=== PATIENT | female | born 1970 | race Caucasian/White ===

== ENCOUNTER 2016-11-29 06:58 | Day surgery (SDC) | payer BC ==
--- NOTE | 2016-10-07 20:48 | HP ---
PREOPERATIVE HISTORY AND PHYSICAL: DATE OF ADMISSION: 10/18/16 PROVIDER: Jignesh Jamison MD CHIEF COMPLAINT: Left ankle pain. HISTORY OF PRESENT ILLNESS: Ester is a 45-year-old female followed by Dr. Jamison for ongoing left Achilles tendinosis. This has been bothering her for several years and has been treated conservatively with immobilization and a cast , Cam walking boot, and has also been treated with a dorsiflexion walking AFO. She states that the pain has improved very slightly and continues to cause disruption in her day-to-day activities. She denies any history of injury. She is interested in surgical intervention for correction of the problem at this point. PAST MEDICAL HISTORY: 1. Atrial flutter. 2. Asthma. PAST SURGICAL HISTORY: 1. Pilonidal cyst excision. 2. section. 3. Colectomy. MEDICATIONS: 1. Nadolol 20 mg one-half tab p.o. every day. 2. Aleve 220 mg 2 tabs p.o. b.i.d. p.r.n. 3. Tylenol 325 mg p.o. q.i.d. p.r.n. 4. Albuterol inhaled q.4 hours p.r.n. ALLERGIES: SULFA and TOBRAMYCIN. FAMILY HISTORY: Significant for heart disease, diabetes, hypertension, stroke, cancer, and rheumatoid arthritis. SOCIAL HISTORY: The patient lives with her . She has never smoked. She occasionally consumes alcohol. She does not exercise regularly. 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 REVIEW OF SYSTEMS: Constitutional: Negative for recent hospitalizations, fever , chills, night sweats, or weight loss. Head: Negative for headaches, lightheadedness, or balance problems. Cardiovascular: Negative for chest or arm pain with exertion. Positive for heart murmur. Negative for heart palpitations, high blood pressure, embolism, or deep vein thrombosis. Respiratory: Negative for chronic cough or shortness of breath with exertion. Positive for asthma. Negative for COPD. Gastrointestinal: Negative for heartburn, nausea, vomiting, diarrhea, constipation, or GERD. Genitourinary: Negative for nighttime urination, frequency of urination, urinary tract infections, or kidney problems. Musculoskeletal: Negative for chronic back pain or recent fractures. Skin: Negative for rashes, lesions, lumps, or sores. Neurologic: Negative for seizure, stroke, epilepsy, depression, or anxiety. Endocrine: Negative for diabetes or thyroid problems. Hematology: Negative for easy bleeding, bruising, or anemia. PHYSICAL EXAMINATION GENERAL: She is a well-developed, well-nourished obese female, in no acute distress at rest. She is alert and oriented x3 with appropriate mood and affect. VITAL SIGNS: The patient is 5 feet and 5 inches, 315 pounds, blood pressure 128 /65, and pulse is 74. HEENT: Normocephalic, atraumatic. Hearing and vision are grossly intact. NECK: Her trachea is midline. RESPIRATORY: Lungs clear to auscultation bilaterally. No wheezes, rales, or rhonchi. CARDIOVASCULAR: Regular rate and rhythm. No murmurs, rubs, or gallops. Normal S1, S2. ABDOMEN: Soft, obese, and nontender. EXTREMITIES: Exam of the left lower extremity, skin is intact without abrasions or open wounds. There is no edema, ecchymosis, or gross deformities. She has tenderness to palpation along the length of the Achilles tendon, most notably at its insertion. She has full hindfoot range of motion with 5/5 strength throughout. Resisted plantar flexion increases her pain. Sensation to light touch is intact. She has a 2+ dorsalis pedis pulse. IMAGING: MRI of the left ankle was consistent with chronic Achilles tendinosis with partial tearing. IMPRESSION: Left Achilles tendinosis. PLAN: The patient is to undergo left ankle Achilles advancement with calcaneal ostectomy by Dr. Jamison on 10/18/16. The risks, benefits, and postoperative course were discussed with the patient at length and she would like to proceed. All of her questions were answered to her full satisfaction. We will follow up with the patient in the postoperative phase. MICHELLE GRANT [id number]/[facility] #: [id number] CIERA
--- NOTE | 2016-11-26 12:38 | HP ---
PREOPERATIVE HISTORY AND PHYSICAL: DATE OF ADMISSION: 11/29/16 [facility] PROVIDER: Jignesh Jamison MD CHIEF COMPLAINT: Left ankle pain. HISTORY OF PRESENT ILLNESS: Ester is a 46-year-old female who has been followed by Dr. Jamison for ongoing pain in her left Achilles tendon that she has had pain for greater than 3 years. She has tried conservative treatment with a dorsiflexion blocking AFO. She has tried physical therapy. She has tried rest with a tall CAM walking boot. She has tried [id number] antiinflammatories and has been very frustrated with the lack of progress with any of those treatments. She is now interested in surgical intervention for correction of the problem. PAST MEDICAL HISTORY: Type 2 diabetes, asthma, atrial flutter. PAST SURGICAL HISTORY: Pilonidal cyst excision, section, and colectomy. She reports no complications with the anesthesia with any of those procedures. MEDICATIONS: 1. Nadolol 20 mg one-half tab p.o. daily. 2. Aleve 220 mg 2 tabs b.i.d. p.r.n. pain. 3. Tylenol 325 mg 2 tabs p.o. q.i.d. p.r.n. pain. 4. Albuterol sulfate inhaled q. 4 hours p.r.n. wheezing. 5. Lantus 15 units subcu daily. ALLERGIES: SULFA ANTIBIOTICS, TOBRAMYCIN EYE DROPS. FAMILY HISTORY: Significant for heart disease, diabetes, hypertension, stroke, cancer and rheumatoid arthritis. SOCIAL HISTORY: The patient lives with her . She has never smoked. She occasionally consumes alcohol. She does not exercise regularly. She is employed as a homecare respiratory therapist. REVIEW OF SYSTEMS: Constitutional: Negative for recent hospitalizations, fevers, chills, night sweats or weight loss. Head: Negative for headaches, lightheadedness or balance problems. Cardiovascular: Positive for heart murmur due to her Aflutter. Negative for chest or arm pain with exertion, history of heart attack, heart palpitations, high blood pressure, embolism or deep vein thrombosis. Respiratory: Negative for chronic cough, shortness of breath with exertion. Positive for asthma. Negative for COPD. Gastrointestinal: Negative for heartburn, nausea, vomiting, diarrhea, constipation or GERD. Genitourinary: Negative for nighttime urination, frequency of urination, urinary tract infections or kidney problems. Musculoskeletal: Negative for chronic back pain or recent fractures. Skin: Negative for rashes, lesions, lumps or sores. Neurologic: Negative for seizures , stroke, epilepsy, depression or anxiety. Endocrine: Positive for diabetes. Negative for thyroid problems. Hematology: Negative for easy bleeding, bruising or anemia. PHYSICAL EXAMINATION GENERAL: She is a well-developed, well-nourished, heavyset female in no acute distress at rest. She is alert and oriented x3 with appropriate mood and affect. VITAL SIGNS: The patient is 5 feet 5 inches, 307 pounds, blood pressure 130/78 , pulse 64, respirations 16. HEENT: Normocephalic, atraumatic. Hearing and vision are grossly intact. NECK: Trachea is midline. RESPIRATORY: Lungs clear to auscultation bilaterally. No wheezes, rales or rhonchi. CARDIOVASCULAR: Regular rate and rhythm. No murmurs, rubs or gallops. Normal S1 and S2. ABDOMEN: Soft, obese, nontender. EXTREMITIES: Exam of the left lower extremity, skin is intact without abrasions or open wounds. There is no edema, ecchymosis or gross deformities. She is tender to palpation along the length of the Achilles tendon most notably at its insertion. She has full hind foot range of motion with 5/5 strength throughout. She has pain with a resisted plantar flexion. Sensation to light touch is intact. She has a 2+ dorsalis pedis pulse. IMAGING: MRI of the left ankle was consistent with chronic Achilles tendinosis with partial tearing. IMPRESSION: Left Achilles tendinosis. PLAN: The patient is to undergo left Achilles advancement with calcaneal ostectomy by Dr. Jamison on 11/29/16. The risks and benefits of postoperative course were discussed with the patient at length and she would like to proceed. All of her questions were answered to her full satisfaction. Prescription for oxycodone for postoperative pain is sent to her pharmacy. We will follow up with the patient in the postoperative phase. MICHELLE GRANT [id number]/[facility] #: [id number] CIERA
[~2016-11-29 06:58] MED LIST: Buffered Lidocaine 1% SYR 3ML* 3 ML/SYR SYRINGE INTRADERM ONE; Famotidine TAB* 20 MG PO ONE; Metoclopramide TAB* 10 MG PO ONE; Sodium Citrate/Citric Acid* 15 ML UDC PO ONE
[2016-11-29] MEDS ORDERED: Sodium Citrate/Citric Acid* 15 ML UDC ONE (07:08)
[2016-11-29] MEDS ORDERED: ceFAZolin 2 GM PREMIX (*) 2 GM/50 ML BAG IVPB ONE (07:08)
[2016-11-29] MEDS ORDERED: Metoclopramide TAB* 10 MG ONE (07:08)
[2016-11-29] MEDS ORDERED: Famotidine TAB* 20 MG ONE (07:08)
[2016-11-29] MEDS ORDERED: ceFAZolin 1 GM in Dextrose (*) 1 GM/50 ML BAG IVPB ONE (08:34)
[2016-11-29] MEDS ORDERED: Bupivacaine 0.5% SDV PF* 30 ML VIAL ONE (08:43)
[2016-11-29] MEDS ORDERED: fentaNYL* 50 MCG/ML 2 ML VIAL (100 MCG VIAL) ONE (08:54)
[2016-11-29] MEDS ORDERED: Midazolam* 1 MG/ML 5 ML VIAL (5 MG) ONE (08:54)
[2016-11-29] MEDS ORDERED: Ketorolac INJ* 30 MG/ML 1 ML VIAL IV PRN (09:46)
[2016-11-29] MEDS ORDERED: DiMENhydriNATE IV* 50 MG/ML VIAL IV PUSH PRN (09:46)
[2016-11-29] MEDS ORDERED: fentaNYL* 50 MCG/ML 2 ML VIAL (100 MCG VIAL) IV PRN (09:46)
[2016-11-29] MEDS ORDERED: oxyCODONE/Acetamin 5/325 MG* TAB PO PRN (09:46)
[2016-11-29] MEDS ORDERED: oxyCODONE/Acetamin 5/325 MG* TAB ONE (13:50)
[2016-11-29 14:08] VITALS: BP 122/77
--- NOTE | 2016-11-30 01:54 | OP ---
DATE OF OPERATION: 11/29/16 - [facility] DATE OF : 66 SURGEON: Jignesh Jamison MD DRUM SANDER SETTER: Heather Loza PA-C ANESTHESIOLOGIST: Nathaniel Melton MD ANESTHESIA: Spinal PRE-OP DIAGNOSIS: Chronic Achilles exertional tendinosis, left hind foot. POST-OP DIAGNOSIS: Chronic Achilles exertional tendinosis, left hind foot. OPERATIVE PROCEDURE: Advancement, debridement, left Achilles and posterior calcanectomy. DESCRIPTION OF PROCEDURE: The patient was taken to the operating room, where a prone position was used. We opened up a 12 cm longitudinal incision just to the medial aspect of the midline right down at the calcaneus in the plantar aspect. We reflected the Achilles away from the posterior calcaneus. This was very knobby and irregular in surface consistency. We used a microsagittal saw to flatten removing the posterior tuberosity. The distal portion of the tendon also had longitudinal calcific segments which were debrided with a 10 blade. Approximately V-Y lengthening was performed by incising in an inverted V the gastroc tendon. We then retracted distally closing side to side with 0 Vicryl sutures. The freshened Achilles then advanced to the calcaneus using paired #1 Ti-Cron sutures through drill holes of the plantar calcaneus. The sutures were tied over the plantar aspect of the tubercle. We then irrigated thoroughly closing the subcutaneous tissue with 2-0 Vicryl, bernabe for the skin and a compression dressing plaster splint applied. [id number]/[facility] #: [id number] MTDD
== END 2016-11-29 14:45 | disposition home or self-care (01) ==
LOC: OR 06:58
PROVIDERS: ATTEND Orthopaedic Surgery
DX: M76.62 Achilles tendinitis, left leg (principal); E11.8 Type 2 diabetes mellitus with unspecified complications; Z79.4 Long term (current) use of insulin; I48.91 Unspecified atrial fibrillation; J45.909 Unspecified asthma, uncomplicated; G47.33 Obstructive sleep apnea (adult) (pediatric)
CPT/HCPCS: 88304; 88311; A9270-GY; C1776; J0690; J2250; J3010

== ENCOUNTER 2017-07-20 18:22 | Emergency (ER) | payer BC ==
[2017-07-20] MEDS ORDERED: Metoclopramide IV* 5 MG/ML 2 ML VIAL IV ONE (19:59)
[2017-07-20 20:35] LABS: Urine Bilirubin Negative (Negative); Urine Glucose 1+(50 mg/dL) (Negative); Urine Nitrite Negative (Negative)
[2017-07-20 20:59] LABS: Hematocrit 39 % (35-47); Mean Corpuscular HGB Conc 33 g/dl (31-36); Mean Corpuscular Hemoglobin 28 pg (27-31); Mean Corpuscular Volume 84 fL (80-97); Mean Platelet Volume 8 um3 (7.4-10.4); Red Blood Count 4.63 10^6/ul (4.0-5.4); Red Cell Distribution Width 14 % (10.5-15); White Blood Count 8.8 10^3/ul (3.5-10.8)
[2017-07-20 21:27] LABS: ALT 34 U/L (7-52); AST 24 U/L (13-39); Albumin 3.7 g/dL (3.2-5.2); Alkaline Phosphatase 59 U/L (34-104); Amylase 20 U/L (29-103); Anion Gap 7 mmol/L (2-11); BUN/Creatinine Ratio 9.3 (8-20); Blood Urea Nitrogen 7 mg/dL (6-24); CO2 Carbon Dioxide 28 mmol/L (22-32); Calcium 8.7 mg/dL (8.6-10.3); Chloride 98 mmol/L (101-111); EGFR African American 106.1 (>60); EGFR Non-African American 82.5 (>60); Globulin 3.9 g/dL (2-4); Glucose 195 mg/dL (70-100); Lipase 17 U/L (11.0-82.0); Magnesium 1.6 mg/dL (1.9-2.7); Potassium 3.1 mmol/L (3.5-5.0); Sodium 133 mmol/L (133-145); Total Protein 7.6 g/dL (6.4-8.9)
[2017-07-20] MEDS ORDERED: Iodixanol* (CONTRAST) 320 MG/ML 100 ML SDV IV ONE (21:45)
[2017-07-20] MEDS ORDERED: Potassium Chlor TAB* 20 MEQ TAB.ER PO ONE (23:27)
[2017-07-20] MEDS ORDERED: KCL 10 MEQ/50 ML IVPREMIX* 10 MEQ/50 ML BAG IV ONE (23:27)
[2017-07-20] MEDS ORDERED: NS 0.9% 1000 ML*IV.FLUID IV ONE (23:57)
--- NOTE | 2017-07-21 02:14 | ED ---
Gold Milton Rebecca, scribed for Ector Rutherford MD on 07/20/17 at 2013 . Abdominal Pain/Female - HPI Summary HPI Summary: Pt is a 46 y/o F referred from [facility] who presents to ED c/o abdominal pain. Sx began about 2 days ago. Pain is currently moderate, ranked 7/10 and located in the umbilical region and RLQ. Reports she was waking up every hour last night secondary to the pain. Sx aggravated and alleviated by nothing, unchanged by walking. Additionally c/o nausea, dizziness, fever and chills. Denies V/D, vaginal bleeding and vaginal discharge. - History of Current Complaint Chief Complaint: EDAbdPain Stated Complaint: ABD PAIN Hx Obtained From: Patient Hx Last Menstrual Period: 04/01/16 Onset/Duration: Lasting Days - 2 days, Still Present Severity Currently: Moderate Pain Intensity: 7 Pain Scale Used: 0-10 Numeric Location: Discrete At: RLQ, Umbilical Radiates: No Aggravating Factor(s): Nothing Alleviating Factor(s): Nothing Associated Signs and Symptoms: Positive: Fever, Nausea. Negative: Vaginal Bleeding, Vaginal Discharge, Vomiting, Diarrhea Allergies/Adverse Reactions: Allergies Allergy/AdvReac Type Severity Reaction Status Date / Time Sulfa Drugs Allergy Intermediate Swelling Verified 07/20/17 20:12 Of Face,Lips,& Throat Propoxyphene [From Darvon] Allergy HALLUCIATIO Verified 07/20/17 18:55 NS Tobramycin Allergy EYE Verified 07/20/17 18:55 OINTMENT - EYE SWELLS erythromycin eye ointment Allergy See Comment Uncoded 07/20/17 18:55 PMH/Surg Hx/FS Hx/Imm Hx Endocrine/Hematology History: Reports: Hx Diabetes - NEWLY DIAGNOSED- CURRENTLY TAKES LANTUS AT BEDTIME Denies: Hx Thyroid Disease Cardiovascular History: Reports: Other Cardiovascular Problems/Disorders - HEART ARRTHYMIA WITH ON MED- NO PROBLEM IN THE LAST 20 YEARS Denies: Hx Hypertension, Hx Pacemaker/ICD Respiratory History: Reports: Hx Asthma - PRN INHALER, Hx Sleep Apnea, Other Respiratory Problems/Disorders Denies: Hx Chronic Obstructive Pulmonary Disease (COPD) GI History: Denies: Hx Ulcer History: Reports: Hx Kidney Stones - HX OF Sensory History: Reports: Hx Contacts or Glasses - CONTACTS, WILL WEAR GLASSES DOS Denies: Hx Hearing Aid Opthamlomology History: Reports: Hx Contacts or Glasses - CONTACTS, WILL WEAR GLASSES DOS Neurological History: Reports: Hx Migraine - HX OF, CURRENTLY ON NADALOL Psychiatric History: Denies: Hx Panic Disorder - Surgical History Surgery Procedure, Year, and Place: 1988 & 1989 EXCISION OF PILONIDAL CYST, [facility]. 1997 CSECTION WITH BILATERAL TUBAL LIGATION, [facility]. 2011 LAPAROSCOPIC CHOLECYSTECTOMY, [facility] Hx Anesthesia Reactions: Yes - SPINAL-DIFFICULTY GETTING IT IN, END UP WITH GENERAL - Immunization History Date of Influenza Vaccine: 07/14/17 Infectious Disease History: No Infectious Disease History: Denies: Hx Clostridium Difficile, Hx Hepatitis, Hx Human Immunodeficiency Virus (HIV), Hx of Known/Suspected MRSA, Hx Shingles, Hx Tuberculosis, Hx Known/ Suspected VRE, Hx Known/Suspected VRSA, History Other Infectious Disease, Traveled Outside the in Last 30 Days - Family History Known Family History: Positive: Hypertension - Social History Alcohol Use: Rare Substance Use Type: Reports: None Smoking Status (MU): Never Smoked Tobacco Review of Systems Positive: Fever, Chills Positive: Abdominal Pain, Nausea. Negative: Vomiting, Diarrhea Positive: other - NEGATIVE: Vaginal bleeding. Negative: discharge Neurological: Other - Dizziness All Other Systems Reviewed And Are Negative: Yes Physical Exam - Summary Physical Exam Summary: Appearance: Well-appearing, Well-nourished, NAD Skin: Warm Eyes: Normal ENT: Normal Neck: Supple, nontender Respiratory: Clear to auscultation Cardiovascular: Normal Abdomen: Soft, mildly tender in the periumbilical region to the RLQ, no rebound , no guarding, negative Psoas, negative Rovsing's sign Bowel: Present Musculoskeletal: Normal, Strength/ROM Intact Neurological: Normal, Alert, Oriented to Person Psychiatric: Normal Triage Information Reviewed: Yes Vital Signs On Initial Exam: Initial Vitals Temp Pulse Resp BP Pulse Ox 99 F 102 20 145/85 95 07/20/17 18:33 07/20/17 18:33 07/20/17 18:33 07/20/17 18:33 07/20/17 18:33 Vital Signs Reviewed: Yes - [place] Coma Scale Coma Scale Total: 15 Diagnostics - Vital Signs Vital Signs Temp Pulse Resp BP Pulse Ox 07/20/17 19:30 98 15 168/95 96 07/20/17 19:00 100 19 147/80 96 07/20/17 18:50 107 95 07/20/17 18:48 137/54 07/20/17 18:33 99 F 102 20 145/85 95 - Laboratory Lab Results: Lab Results 07/20/17 07/20/17 07/20/17 Range/Units 18:50 20:50 20:50 WBC (3.5-10.8) 10^3/ul RBC (4.0-5.4) 10^6/ul Hgb (12.0-16.0) g/dl Hct (35-47) % MCV (80-97) fL MCH (27-31) pg MCHC (31-36) g/dl RDW (10.5-15) % Plt Count (150-450) 10^3/ul MPV (7.4-10.4) um3 Neut % (Auto) (38-83) % Lymph % (Auto) (25-47) % Storey % (Auto) (1-9) % Eos % (Auto) (0-6) % Baso % (Auto) (0-2) % Absolute Neuts (auto) (1.5-7.7) 10^3/ul Absolute Lymphs (auto) (1.0-4.8) 10^3/ul Absolute Monos (auto) (0-0.8) 10^3/ul Absolute Eos (auto) (0-0.6) 10^3/ul Absolute Basos (auto) (0-0.2) 10^3/ul Absolute Nucleated RBC 10^3/ul Nucleated RBC % INR (Anticoag Therapy) 1.14 H (0.89-1.11) APTT 19.1 L (26.0-36.3) seconds Sodium 133 (133-145) mmol/L Potassium 3.1 L (3.5-5.0) mmol/L Chloride 98 L (101-111) mmol/L Carbon Dioxide 28 (22-32) mmol/L Anion Gap 7 (2-11) mmol/L BUN 7 (6-24) mg/dL Creatinine 0.75 (0.51-0.95) mg/dL Est GFR ( Amer) 106.1 (>60) Est GFR (Non-Af Amer) 82.5 (>60) BUN/Creatinine Ratio 9.3 (8-20) Glucose 195 H (70-100) mg/dL Calcium 8.7 (8.6-10.3) mg/dL Magnesium 1.6 L (1.9-2.7) mg/dL Total Bilirubin 0.50 (0.2-1.0) mg/dL AST 24 (13-39) U/L ALT 34 (7-52) U/L Alkaline Phosphatase 59 (34-104) U/L Total Protein 7.6 (6.4-8.9) g/dL Albumin 3.7 (3.2-5.2) g/dL Globulin 3.9 (2-4) g/dL Albumin/Globulin Ratio 0.9 L (1-3) Amylase 20 L (29-103) U/L Lipase 17 (11.0-82.0) U/L Beta HCG, Quant < 0.60 mIU/mL Urine Color Straw Urine Appearance Clear Urine pH 6.0 (5-9) Ur Specific [place] 1.005 L (1.010-1.030) Urine Protein Negative (Negative) Urine Ketones Negative (Negative) Urine Blood Negative (Negative) Urine Nitrate Negative (Negative) Urine Bilirubin Negative (Negative) Urine Urobilinogen Negative (Negative) Ur Leukocyte Esterase Negative (Negative) Urine Glucose 1+(50 mg/dl) H (Negative) 07/20/17 Range/Units 20:50 WBC 8.8 (3.5-10.8) 10^3/ul RBC 4.63 (4.0-5.4) 10^6/ul Hgb 13.0 (12.0-16.0) g/dl Hct 39 (35-47) % MCV 84 (80-97) fL MCH 28 (27-31) pg MCHC 33 (31-36) g/dl RDW 14 (10.5-15) % Plt Count 283 (150-450) 10^3/ul MPV 8 (7.4-10.4) um3 Neut % (Auto) 73.3 (38-83) % Lymph % (Auto) 19.8 L (25-47) % Storey % (Auto) 6.4 (1-9) % Eos % (Auto) 0 (0-6) % Baso % (Auto) 0.5 (0-2) % Absolute Neuts (auto) 6.5 (1.5-7.7) 10^3/ul Absolute Lymphs (auto) 1.7 (1.0-4.8) 10^3/ul Absolute Monos (auto) 0.6 (0-0.8) 10^3/ul Absolute Eos (auto) 0 (0-0.6) 10^3/ul Absolute Basos (auto) 0 (0-0.2) 10^3/ul Absolute Nucleated RBC 0 10^3/ul Nucleated RBC % 0 INR (Anticoag Therapy) (0.89-1.11) APTT (26.0-36.3) seconds Sodium (133-145) mmol/L Potassium (3.5-5.0) mmol/L Chloride (101-111) mmol/L Carbon Dioxide (22-32) mmol/L Anion Gap (2-11) mmol/L BUN (6-24) mg/dL Creatinine (0.51-0.95) mg/dL Est GFR ( Amer) (>60) Est GFR (Non-Af Amer) (>60) BUN/Creatinine Ratio (8-20) Glucose (70-100) mg/dL Calcium (8.6-10.3) mg/dL Magnesium (1.9-2.7) mg/dL Total Bilirubin (0.2-1.0) mg/dL AST (13-39) U/L ALT (7-52) U/L Alkaline Phosphatase (34-104) U/L Total Protein (6.4-8.9) g/dL Albumin (3.2-5.2) g/dL Globulin (2-4) g/dL Albumin/Globulin Ratio (1-3) Amylase (29-103) U/L Lipase (11.0-82.0) U/L Beta HCG, Quant mIU/mL Urine Color Urine Appearance Urine pH (5-9) Ur Specific Pelham (1.010-1.030) Urine Protein (Negative) Urine Ketones (Negative) Urine Blood (Negative) Urine Nitrate (Negative) Urine Bilirubin (Negative) Urine Urobilinogen (Negative) Ur Leukocyte Esterase (Negative) Urine Glucose (Negative) Result Diagrams: 07/20/17 20:50 07/20/17 20:50 Lab Statement: Any lab studies that have been ordered have been reviewed, and results considered in the medical decision making process. - CT CT Abd/Pel CT Interpretation Completed By: Radiologist - There are a few mildly dilated loops of ileum. However, contrast flows freely through these loops into the colon. This simply may represent an adynamic ileus. If there is any concern for bowel obstruction, followup is recommended. Negative for diverticulitis or colitis. Appendix is not visualized but there is no pericecal inflammation or inflammatory mass. Normal kidneys, urinary tract, and urinary bladder. Questionable fatty liver. Prior cholecystectomy. Normal spleen. Normal pancreas. Normal adrenal glands. There is a mild mesenteric panniculitis. This is a nonspecific chronic inflammation of the fat of the mesenteric root. Prominent right ovary measuring 5.1 cm x 5.5 cm x 4.9 cm. Slightly more than would be expected related to the menstrual cycle. If there is any concern for acute [employer] pathology, then ultrasound may be helpful. ED physician reviewed radiology report and agrees. Re-Evaluation - Re-Evaluation First Eval Re-Evaluation Time: 00:24 Comment: Discussed CT results with the pt and answered any questions. Abdominal Pain Fem Course/Dx - Course Course Of Treatment: pt feels much better after meds. ultrasound nondiagnostic, pt instructed to return immediatley for any worsenin gor ocncerning symptoms and to f/u with button spindler. agrees to and understands dc instructions . - Diagnoses Provider Diagnoses: Abdominal pain, Ovarian cyst Discharge - Discharge Plan Condition: Improved Disposition: HOME Prescriptions: Ondansetron ODT TAB* [Zofran 4 MG Odt TAB*] 4 mg PO Q6H PRN #6 tab.odt PRN Reason: Nausea Patient Education Materials: Abdominal Pain (ED) Referrals: Nadya Anderson MD [Primary Care Provider] - Nilsa Gold MD [Medical Doctor] - Additional Instructions: PLEASE MAKE AN APPOINTMENT FIRST THING IN THE MORNING TO BE SEEN BY A TELEMARKETING AGENT WITHIN 1 WEEK PLEASE RETURN TO THE EMERGENCY ROOM IF YOU HAVE ANY WORSENING OR CONCERNING SYMPTOMS The documentation as recorded by the Gold sanders Rebecca accurately reflects the service I personally performed and the decisions made by me, Ector Rutherford MD.
[2017-07-21 02:52] VITALS: BP 119/69
--- NOTE | 2017-07-21 07:47 | RAD ---
CLINICAL HISTORY: Abdominal pain. Relevant surgical history includes cholecystectomy. COMPARISON: Pelvic ultrasound July 21, 2017 TECHNIQUE: Contrast enhanced CT examination of the abdomen and pelvis from the lung bases through the initial tuberosities. The patient received 141 mL Visipaque 320 intravenously prior to imaging.The patient received oral contrast as well prior to imaging. FINDINGS: VISUALIZED LUNG BASES: The visualized lung bases are grossly clear. There is no pleural effusion. ABDOMEN AND PELVIS: At the posterior aspect of the right hepatic dome there is a rounded area of relative hyperattenuation measuring 5 cm (image 16 of 103). Elsewhere the liver is homogenously hypoattenuating relative to the spleen. The surface of the liver is smooth. The spleen is mildly enlarged measuring 13.9 cm in greatest axial dimension. The pancreas and adrenal glands are grossly normal in appearance. The gallbladder is surgically absent. The kidneys are normal in appearance without focal mass, calcification or signs of hydronephrosis. The oral contrast as progressed as far as the ascending colon. At the more proximal small bowel there are multiple air-fluid levels and top normal but not pathologically dilated loops of small bowel measuring up to 2.8 cm in diameter (image 64). The appendix is not discretely visualized, but there are no focal inflammatory changes at the base of the cecum consistent with acute appendicitis. At the mesenteric root there is a conglomeration of lymph nodes, the largest measuring 1.5 cm in short axis diameter (coronal image 56). Additional lymph nodes at the mesenteric root measuring up to 1 cm in short axis diameter (coronal image 66). Tubal ligation clips are incidentally noted. At the right adnexa there is a near fluid density structure measuring 4 cm, likely a dominant follicle in a premenopausal woman. The abdominal aorta and iliac arteries are normal in course and diameter. Degenerative changes include multilevel loss of intervertebral disc height involving the lower thoracic and lumbar spine.There are no sinister bone lesions. IMPRESSION: 1. Mildly dilated loops of small bowel with multiple air-fluid levels in the presence of mild mesenteric root lymphadenopathy indicates infectious or inflammatory bowel disease. 2. The liver is homogenously hypodense with the exception of a 5 cm focus at the posterior right hepatic dome which could either represent focal fatty sparing or potentially a another mass such as hemangioma or adenoma. On a nonemergent basis this can be further characterized with ultrasound of the liver. 3. Mild splenomegaly. 4. Additional chronic, degenerative and iatrogenic findings described in the body the report.
--- NOTE | 2017-07-21 07:56 | RAD ---
HISTORY: Right ovarian enlargement on CT, right lower quadrant pain COMPARISONS: CT dated July 20, 2017 TECHNIQUE: Multiple transverse and longitudinal ultrasound images were obtained of the pelvis using grayscale and color Doppler imaging using the endovaginal transducer. According to the technologist report, the patient was unable to complete the study secondary to pain. FINDINGS: The study is limited by body habitus and patient pain UTERUS: The uterus measures 10.2 x 5.3 x 5.2 cm. The uterus is normal in shape, size, contour, and echotexture. ENDOMETRIUM: The endometrial stripe is smooth. The endometrium measures 1.3 cm in thickness. There is a small amount of fluid within the endometrial cavity. CUL-DE-SAC: There is no free fluid within the cul-de-sac. RIGHT OVARY: The right ovary is not well visualized. What may be a cyst of the right ovary is noted measuring 7.5 cm in size. No flow is noted on color Doppler imaging, though this is not considered a diagnostic evaluation for torsion. LEFT OVARY: The left ovary is not clearly visualized. BLADDER: The bladder is not well visualized. OTHER: None IMPRESSION: LIMITED ULTRASOUND OF THE PELVIS, NONDIAGNOSTIC FOR EVALUATION OF TORSION. THERE IS A QUESTIONABLE CYST OF THE RIGHT OVARY, THOUGH EVALUATION IS LIMITED
== END 2017-07-21 02:52 | disposition home or self-care (01) ==
LOC: ED 18:22
DX: N83.209 Unspecified ovarian cyst, unspecified side (principal); R10.9 Unspecified abdominal pain; R50.9 Fever, unspecified; R11.0 Nausea
CPT/HCPCS: 36415; 74177; 76830; 76856; 80053; 81003; 82150; 83690; 83735; 84702; 85025; 85610; 85730; 99284; A9270-GY; J2765; J3480; Q9967